=== PATIENT | female | born 1940 | race Caucasian/White ===

== ENCOUNTER → 2023-02-02 | Outpatient (CLI) | payer MEDICARE ==
[~2023-02-02] MED LIST: ALLO100T PO; ATOR80TA76 PO; CALC-722 PO; CARV25TA PO; CATHETER FLUSH 10 ML SYR IVP PRN; CLOP75TA28 PO; DOCU100C37 PO; FURO40TA4 PO; POTA-330 PO; REGADENOSON 0.4 MG/5 ML SYR IV ONE; SACU1TAB4 PO; SPIR25TA PO
[2023-02-02 09:15] VITALS: BP 147/54
--- NOTE | 2023-02-02 13:32 | Cardiology Stress Test Report ---
Stress Test Report Date of Procedure/Referring: Date of Procedure: Feb 02, 2023 PCP Jessica Tejeda MD Admitting Physician Admitting Physician: Attending Physician: Cain Wang MD Baseline Heart Rate: 65 Baseline Blood Pressure: Blood Pressure Systolic: 147 Blood Pressure Diastolic: 54 Baseline Vitals Vital Signs Date Time Temp Pulse Resp B/P (MAP) Pulse Ox O2 Delivery O2 Flow Rate FiO2 02/02/23 09:15 80 147/54 (85) Baseline EKG: Baseline EKG: LBBB Summary After explaining the procedure to the patient, she signed a consent and then brought to the stress nuclear laboratory. Patient received 0.4 mg Lexiscan for stress test, ECG, heart rate and blood pressure were monitored continuously. Resting and stress dose of radio tracer were injected, imaging was acquired and reviewed in short axis, horizontal long axis and vertical long axis views. TID: 1.08 SSS: 12 SDS: 7 EF: 29 Patient tolerated Lexiscan well Baseline left bundle branch block persisted during test Reversible ischemia involving the inferior wall and inferolateral wall and inferoseptum Diffuse left ventricular hypokinesia with ejection fraction 30% CAIN WANG MD Feb 02, 2023 13:32
== END ==
LOC: CARD 07:25
PROVIDERS: ATTEND Internal Medicine Cardiovascular Disease
DX: I25.9 Chronic ischemic heart disease, unspecified (principal); I44.7 Left bundle-branch block, unspecified; I51.89 Other ill-defined heart diseases
CPT/HCPCS: 78452; 93017; A9502

== ENCOUNTER 2023-02-09 13:00 | Day surgery (SDC) | payer MEDICARE ==
[~2023-02-09] VITALS: Ht 167.6 cm; Wt 42.2 kg
[2023-02-09] VITALS (11 sets, daily range): BP systolic 132–173; BP diastolic 55–85
[2023-02-09 11:43] LABS: HEMATOCRIT 39 % (35-52); HEMOGLOBIN 12.3 g/dL (11.5-16.0); MEAN CORPUSCULAR HEMOGLOBIN 30 pg (25-34); MEAN CORPUSCULAR HGB CONC 32 g/dL (32-36); MEAN CORPUSCULAR VOLUME 92 fL (80-99); MEAN PLATELET VOLUME 11.9 fL (9.0-12.2); PLATELET COUNT 153 10^3/uL (130-400); WHITE BLOOD COUNT 7.5 10^3/uL (4.3-11.0)
--- NOTE | 2023-02-09 11:48 | Cardiac Procedure Note-CS/ASA ---
Pre-Procedure Note Pre-Op Procedure Note Date of Available H&P: Feb 01, 2023 Date H&P Reviewed: Feb 09, 2023 Time H&P Reviewed: 11:48 History & Physical: H&P Reviewed, Patient Examed, No changes noted Pre-Operative Diagnosis: CAD Moderate Sedation PreProcedure Time 11:48 ASA Score 3 Airway Lungs Heart ASA score ASA 1: a normal healthy patient ASA 2: a patient with a mild systemic disease (mid diabetes, controlled hypertension, obesity ASA 3: a patient with a severe systemic disease that limits activity (angina, COPD, prior Myocardial infarction) ASA 4: a patient with an incapacitating disease that is a constant threat to life (CHF, renal failure) ASA 5: a moribund patient not expected to survive 24 hrs. (ruptured aneurysm) ASA 6: a declared brain- patient whose organs are being harvested. For emergent operations, add the letter E after the classification Mallampati Classification Grade 3 Sedation Plan Analgesia, Amnesia, Plan communicated to team members, Discussed options with patient/fam, Discussed risks with patient/fam The patient is an appropriate candidate to undergo the planned procedure, sedation, and anesthesia. The patient immediately re-assessed prior to indication. CAIN GALVEZ MD Feb 09, 2023 11:48
[2023-02-09 11:49] LABS: INR 1.1 (0.8-1.4); PROTHROMBIN TIME PATIENT 14.2 SEC (12.2-14.7)
[2023-02-09 11:55] LABS: ALBUMIN 3.9 GM/DL (3.2-4.5); BILIRUBIN,TOTAL 0.6 MG/DL (0.1-1.0); CALCIUM 9.1 MG/DL (8.5-10.1); CREATININE SERUM 0.8 MG/DL (0.60-1.30); POTASSIUM 4.4 MMOL/L (3.6-5.0); TOTAL PROTEIN 7.1 GM/DL (6.4-8.2)
[2023-02-09 11:55] LABS: BACTERIA,URINE LARGE /HPF; BILIRUBIN,URINE NEGATIVE (NEGATIVE); CLARITY,URINE CLEAR; COLOR,URINE YELLOW; GLUCOSE, URINE (UA) NEGATIVE (NEGATIVE); KETONES,URINE NEGATIVE (NEGATIVE); LEUKOCYTE ESTERASE ,URINE 2+ (NEGATIVE); NITRITE,URINE POSITIVE (NEGATIVE); PH,URINE 8.5 (5-9); PROTEIN,URINE 1+ (NEGATIVE); RBC,URINE RARE /HPF; WBC,URINE 25-50 /HPF
--- NOTE | 2023-02-09 12:18 | Diagnostic Imaging Report ---
INDICATION: Evaluation prior to heart catheterization, cardiac enlargement. TECHNIQUE: Single view chest, 11:48 a.m. CORRELATION STUDY: 08/28/2022. FINDINGS: Heart size is enlarged. Vascularity has increased. Mildly prominent interstitial markings. No infiltrate. Question trace left pleural effusion. Biapical pleural thickening. 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 IMPRESSION: 1. Cardiac enlargement with mild vascular congestion. Dictated by: Dictated on workstation # [id number]
--- NOTE | 2023-02-09 12:46 | Discharge Inst-Post CATH ---
Discharge Inst-CATH/EP Problems Reviewed?: Yes Post Cardiac Cath/EP D/C Inst Follow Up/Plan Appointment with Dr. Wang's office in 2 to 4 weeks <b>CARDIAC CATH/EP PROCEDURE DISCHARGE INSTRUCTIONS</b> ACTIVITY * Go Home directly and rest. * Limit activity of the leg (or wrist if it was used) for 7 days including aer obics, swimming, jogging, bicycling, etc. * Restrict stair-climbing for 7 days if possible, if not, climb up with your non-cath leg, then bring together on the same step. * Avoid lifting, pushing, pulling or excessive movement of the affected extremi ty for 7 days. * Customary sexual activity may be resumed after 2 days-use caution not to use a position that strains or causes pain to the affected extremity. * No driving for 24 hours. * NO SMOKING. * Avoid straining for bowel movements for 7 days. * Gentle walking on level ground is allowed. * Returning to work will depend on the type of procedure and the results. Your doctor will discuss this with you. CALL YOUR DOCTOR FOR ANY OF THE FOLLOWING: *If bleeding from the puncture site occurs- Apply gentle pressure to site with clean cloth and call your doctor or EMS. * If a knot or lump forms under the skin, increases in size, or causes pain. * If bruising appears to be worsening or moving further down your leg instead of disappearing. * Temperature above 101 F. CARE OF YOUR GROIN INCISION; * Bruising or purple discoloration of the skin near the puncture site is common. * You may shower only, no bathtub bathing for 5 days. Be careful to avoid slipping as your leg may feel stiff. * If a closure device was used on your femoral artery, please see the attached guide regarding care of the device and your leg. * Leave dressing on FOR 24 hours. CARE OF YOUR WRIST INCISION; * Bruising or purple discoloration of the skin near the puncture site is common. * You may shower. * DO NOT submerge wrist. * Leave dressing on FOR 24 hours. CAIN WANG MD Feb 09, 2023 12:46
--- NOTE | 2023-02-09 12:51 | Peripheral Report ---
Peripheral Report Physician (s)/Land Leases And Rentals Manager (s) Physician CAIN GALVEZ MD Pre-Procedure Diagnosis Pre-Procedure Diagnosis: CAD Post-Procedure Note Procedure Start Date: Feb 09, 2023 Name of Procedure: Unilateral right lower extremity runoff First order Findings/Procedure Note PROCEDURE NOTE: 82-year-old lady with history of peripheral arterial disease, history of iliac stents, history of femorofemoral bypass, congestive heart failure with abnormal stress test with reversible ischemia involving the inferior wall. Ejection fraction 29%. Cardiac catheterization was advised. After explaining the procedure to the patient, all pros and cons were explained, all questions were answered. The patient signed the consent and then she was placed on the cardiac catheterization laboratory. The patient was placed on the cardiac catheterization laboratory. Groin was prepped SL fashion local anesthesia was used. Sheath placed in the right femoral artery, I was unable to advance the J-wire through the right femoral artery, I tried Storq wire and then advanced Az right catheter to the right common iliac and there was a total occlusion I was unable to advance it I tried with Glidewire over the Az right without success then I removed the Glidewire and the catheter and used short straight catheter and advanced it again to the right common iliac. Angiogram showed total occlusion. I attempted to access the left femoral artery without success. Sheath was removed with manual pressure FINDINGS: Right lower extremity: Total occlusion at the common iliac artery, there is a stent in the iliac artery that is patent proximal to the stent there is a total occlusion. There is total occlusion of the right SFA reconstructed by collaterals from the deep femoral artery. There is femorofemoral bypass giving flow to the left lower extremity with poor flow CONCLUSIONS: Severe peripheral arterial disease with stent in the right iliac artery and femorofemoral bypass Occlusion at the level of the aortic bifurcation. Patient failed Efrain test and not a suitable candidate for radial access. DISCUSSION AND RECOMMENDATIONS: I will refer her for vascular surgery evaluation. Anesthesia Type: Conscious Sedation Estimated blood loss (mL): 15 ml Contrast Amount: 15 ml Total Radiation Dose: 38 mGy Post-Procedure Diagnosis Post-operative diagnosis: Coronary artery disease Congestive heart failure, chronic compensated left ventricular systolic dysfunction, ischemic cardiomyopathy Peripheral arterial disease Hypertension Hyper lipidemia Abdominal aortic aneurysm CAIN GALVEZ MD Feb 09, 2023 12:51
[~2023-02-09 13:00] MED LIST changes: -CATHETER FLUSH 10 ML SYR IVP PRN; +HEParin (CATH LAB) 2,000 ML IV ONE; +LIDOCAINE 1% INJ 20 ML VIAL ONE; +MIDAZOLAM INJ 5 MG/5 ML VIAL ONE; +NS IV 1000 ML 1,000 ML IV ONE; +NS IV 1000 ML 1,000 ML IV SCH; +NS IV 1000 ML 1,000 ML ONE; +PATIENT MAY USE OWN MEDS, ALL PO SCH; -REGADENOSON 0.4 MG/5 ML SYR IV ONE; +fentaNYL INJECTION 100 MCG/2 ML VIAL ONE
== END 2023-02-09 17:25 | disposition home or self-care (01) ==
LOC: CATH 13:00 → EDSTATUS 13:00 → SDC 13:37 → CATH 17:25
PROVIDERS: ATTEND Internal Medicine Cardiovascular Disease
DX: I25.10 Atherosclerotic heart disease of native coronary artery without angina pectoris (principal); I50.22 Chronic systolic (congestive) heart failure; I25.5 Ischemic cardiomyopathy; I73.9 Peripheral vascular disease, unspecified; I11.0 Hypertensive heart disease with heart failure; I71.40 Abdominal aortic aneurysm, without rupture, unspecified; E78.2 Mixed hyperlipidemia; I65.23 Occlusion and stenosis of bilateral carotid arteries; G47.30 Sleep apnea, unspecified; I70.0 Atherosclerosis of aorta; Z99.81 Dependence on supplemental oxygen; Z87.891 Personal history of nicotine dependence; Z95.828 Presence of other vascular implants and grafts; Z79.899 Other long term (current) drug therapy
CPT/HCPCS: 36245; 71045; 75710; 80053; 80061; 81000; 85027; 85610; 85730; 87077; 87081; 87088; 87186; 93005; C1769 ×2; C1887; C1894; 36415